=== PATIENT | male | born 1950 | race Caucasian/White ===

== ENCOUNTER 2017-06-10 13:29 | Inpatient (IN) | payer BC, MEDICARE ==
[~2017-06-10] VITALS: Ht 185.4 cm; Wt 97.8 kg
[2017-06-10] MEDS ORDERED: TYLENOL 325MG325 MG PO (15:47)
[2017-06-10] MEDS ORDERED: ZOFRAN INJ4 MG/2 ML IV (15:48)
[2017-06-10] MEDS ORDERED: ZOFRAN 4MG T4 MG/TAB PO (15:49)
[2017-06-10] MEDS ORDERED: OXY IR5 MG PO (15:50)
[2017-06-10] MEDS ORDERED: MIRALAX PA17 GM/Dose PO (15:51)
[2017-06-10] MEDS ORDERED: LOVENOX 4040 MG/0.4 SQ (15:52)
[2017-06-10] MEDS ORDERED: SENOKOT S 50 MG1 TAB PO ×2 (15:52→20:58)
[2017-06-10] MEDS ORDERED: ZYLOPRIM 300MG300 MG PO (20:32)
[2017-06-10] MEDS ORDERED: REFRESH CELLUVI1 SOL OP (20:35)
[2017-06-10] MEDS ORDERED: CENTRUM MEN'S (20:37)
[2017-06-10] MEDS ORDERED: MUCINEX 60600 MG/TA1 PO (20:42)
[2017-06-10] MEDS ORDERED: ROXICODONE 55 MG/TAB PO (21:03)
[2017-06-10 22:16] VITALS: BP 133/79; PULSE 95; TEMP 98.8
[2017-06-11 06:00] VITALS: BP 131/68; PULSE 74; TEMP 100
[2017-06-11 09:52] VITALS: PULSE 100
[2017-06-11 16:33] VITALS: BP 125/64; PULSE 74; TEMP 97
[2017-06-11 20:00] VITALS: TEMP 99.7
[2017-06-12 04:42] VITALS: BP 134/73; PULSE 67; TEMP 98.2
[2017-06-12 14:32] VITALS: BP 141/68; PULSE 86; TEMP 96.8
[2017-06-12 17:21] VITALS: BP 115/55; PULSE 94; TEMP 99.8
[2017-06-13 04:30] VITALS: BP 132/72; PULSE 74; TEMP 98.9
[2017-06-13 18:40] VITALS: BP 131/71; PULSE 86; TEMP 98.1
[2017-06-14 04:35] VITALS: BP 122/77; PULSE 72; TEMP 98.2
[2017-06-14 06:35] LABS: MEAN CELL VOLUME 89 fl (80.0-100.0); MEAN CORPUSCULAR HGB CONC 33 g/dl (33.0-37.0); MEAN PLATELET VOLUME 9.8 fl (7.4-10.4); PLATELET COUNT 255 K/mm3 (130-400); RED BLOOD COUNT 2.66 M/mm3 (4.20-5.60); REDCELL DISTRIBUTION WIDTH-CV 15.5 % (11.5-14.5)
[2017-06-14 06:39] LABS: HEMATOCRIT 23.7 % (42.0-52.0); HEMOGLOBIN 7.8 g/dl (13.5-18.0); MEAN CORPUSCULAR HEMOGLOBIN 29 pg (27.0-31.0)
[2017-06-14 06:47] LABS: CALCIUM 7.9 mg/dL (8.4-10.2); CREATININE, serum 1.04 mg/dL (0.66-1.25); MAGNESIUM 2.3 mg/dL (1.6-2.3); POTASSIUM 3.6 mmol/L (3.4-5.0)
[2017-06-14 07:26] LABS: BAND 8 % (0-10); EOSINOPHIL 3 % (0-4); HYPOCHROMIA 1+; LYMPHOCYTE 21 % (20.0-51.0); METAMYELOCYTE 1 % (0-0); NEUTROPHILS 61 % (42.0-75.2); NUCLEATED RED BLOOD CELL 1 (0-6); PLATELET ESTIMATE NORMAL (NORMAL); POLYCHROMASIA 1+
[2017-06-14 18:00] VITALS: BP 143/71; PULSE 80; TEMP 97.1
[2017-06-15 06:00] VITALS: BP 113/74; PULSE 88; TEMP 97.5
[2017-06-15 15:35] VITALS: BP 134/65; PULSE 80; TEMP 97.7
[2017-06-16 06:03] VITALS: BP 129/65; PULSE 65; TEMP 97.3
[2017-06-16 15:32] VITALS: BP 131/67; PULSE 95; TEMP 98.3
[2017-06-17 04:10] VITALS: BP 123/77; PULSE 84; TEMP 98.5
[2017-06-17 15:54] VITALS: BP 140/72; PULSE 88; TEMP 97
[2017-06-18 05:48] VITALS: BP 128/71; PULSE 69; TEMP 98.6
[2017-06-18 07:22] LABS: HEMATOCRIT 26.9 % (42.0-52.0); HEMOGLOBIN 8.2 g/dl (13.5-18.0)
[2017-06-18 07:30] LABS: ALBUMIN 2.8 gm/dL (3.5-5.0); CALCIUM 7.9 mg/dL (8.4-10.2); CREATININE, serum 1.05 mg/dL (0.66-1.25); POTASSIUM 4.1 mmol/L (3.4-5.0)
[2017-06-18 16:23] VITALS: BP 137/58; PULSE 87; TEMP 97.5
[2017-06-19 05:40] VITALS: BP 133/74; PULSE 88; TEMP 98.4
[2017-06-19] MEDS ORDERED: CALCIUM 600MG+D1 TAB PO (08:29)
[2017-06-19] MEDS ORDERED: FERROUS SU325 MG/TAB PO (08:34)
[2017-06-19] MEDS ORDERED: ROXICODONE 55 MG/TAB PO (08:35)
[2017-06-19] MEDS ORDERED: LOVENOX 4040 MG/0.4 SQ (08:35)
[2017-06-19] MEDS ORDERED: PROAIR HFA0.09 MG/AC IH (08:36)
== END 2017-06-19 11:45 | disposition home or self-care (01) | DRG 561 ==
PROVIDERS: Internal Medicine
DX: S72.21XD Displaced subtrochanteric fracture of right femur, subsequent encounter for closed fracture with routine healing (principal); S22.069D Unspecified fracture of T7-T8 vertebra, subsequent encounter for fracture with routine healing; S32.049D Unspecified fracture of fourth lumbar vertebra, subsequent encounter for fracture with routine healing; S62.101D Fracture of unspecified carpal bone, right wrist, subsequent encounter for fracture with routine healing; W18.30XD Fall on same level, unspecified, subsequent encounter; D64.9 Anemia, unspecified; E83.51 Hypocalcemia; S27.322D Contusion of lung, bilateral, subsequent encounter
CPT/HCPCS: 99222-AI; 99232-AI; 99239; J1650